=== PATIENT | male | born 1985 | race American Indian/Alaskan Native ===

== ENCOUNTER 2024-04-29 10:55 | Emergency (ER) | payer OTHER, SELFPAY ==
[2024-04-29 11:02] VITALS: BP 164/96
--- NOTE | 2024-04-29 12:11 | ED.GENMED ---
History of Present Illness
<Татьяна Juarez MD, Resident - Last Filed: 04/29/24 15:15>
General
Chief Complaint: BURN-MINOR
Source: patient and spouse
Exam Limitations: none
Time Seen by Provider: 04/29/24 11:34
Nursing documentation reviewed up to this point in time: agreed with
History of Present Illness
History of Present Illness:
38-year-old male with history of type 2 diabetes who presents to the ED with burn injuries. Last night at 9 PM, he was attempting to move related pot from cooking surface to a table when the lid fell and in an attempt to catch delayed, hot oil on
his right arm and right leg, with minor splashes on face and left leg. He washed affected areas with cold water and soap, took 500 mg Tylenol, applied 4% lidocaine to help with the burning pain. He was able to with a fan nearby for cooling. He
went to urgent care this morning and was told to come to the ED
Today he reports no pain, nausea vomiting, abdominal complaints, fever or chills. He is currently in no pain and has been able to eat and drink as needed. Pt's TDaP history is unknown.
Past History
<Татьяна Juarez MD, Resident - Last Filed: 04/29/24 15:15>
Past History
ED Past Medical History: NIDDM
ED Past Surgical History: None
Patient has exhibited threatening behavior?: No
Social History
Tobacco: Non-smoker
Alcohol: None
Drug: None
Personal:
Living: with family
Employment: Employed
Family History
Family History: Other (non-pertinent)
Review of Systems
<Татьяна Juarez MD, Resident - Last Filed: 04/29/24 15:15>
Review of Systems
Allergies reviewed?: Yes
Other source history: family
Constitutional: Denies fever
Cardiac: Denies chest pain
ABD/GI: Denies abdominal pain, nausea or vomiting
Skin: Reports other (burn, blisters. No pain)
Phy Exam
<Татьяна Juarez MD, Resident - Last Filed: 04/29/24 15:15>
General Physical Exam
General Presentation: well appearing and no apparent distress
General age: appears stated age
General Skin: warm and dry
General Habitus: normal
General Mental: alert
Cardiovascular Exam
Cardiovascular Exam: regular rate/rhythm, no edema and no murmur
Pulmonary Exam
Pulmonary Exam: lungs clear, no respiratory distress, no rales, no crackles, no rhonchi and no wheezing
Oxygen Status: room air
Gastrointestinal Exam
Gastrointestinal Exam: normal bowel sounds, non tender, soft and non distended
Skin Exam
Skin Exam: other (areas of non-tender hyperpigmented blistering and non-blistering lesions on Right arm and R leg, with minor splashes on face and left leg. about 6% TBSA. Upper thighs and torso spared. )
Course
<Татьяна Juarez MD, Resident - Last Filed: 04/29/24 15:15>
Orders/Labs/Results
Orders:
Orders
04/29/24 13:16
Silver Sulfadiazine [Silvadene] 1 applic .ROUTE .STK-MED ONE
04/29/24 13:41
Tetanus/Diphth/Acelpertussis [Adacel] 0.5 ml IM .ONCE ONE
04/30/24 08:00
Silver Sulfadiazine [Silvadene] 1 applic TOPICAL DAILY
Vital Signs
Initial and Last Documented VS:
Initial Vital Signs
Temp Pulse Resp BP Pulse Ox
98.6 F 84 16 164/96 98
04/29/24 11:02 04/29/24 11:02 04/29/24 11:02 04/29/24 11:02 04/29/24 11:02
Last Documented Vital Signs
Temp Pulse Resp BP Pulse Ox
98.6 F 84 16 164/96 98
04/29/24 11:02 04/29/24 11:02 04/29/24 11:02 04/29/24 11:02 04/29/24 11:02
<Herb Christianson DO - Last Filed: 05/01/24 15:32>
Orders/Labs/Results
Orders:
Orders
04/29/24 13:16
Silver Sulfadiazine [Silvadene] 1 applic .ROUTE .STK-MED ONE
04/29/24 13:41
Tetanus/Diphth/Acelpertussis [Adacel] 0.5 ml IM .ONCE ONE
04/30/24 08:00
Silver Sulfadiazine [Silvadene] 1 applic TOPICAL DAILY
Vital Signs
Initial and Last Documented VS:
Initial Vital Signs
Temp Pulse Resp BP Pulse Ox
98.6 F 84 16 164/96 98
04/29/24 11:02 04/29/24 11:02 04/29/24 11:02 04/29/24 11:02 04/29/24 11:02
Last Documented Vital Signs
Temp Pulse Resp BP Pulse Ox
98.6 F 84 16 164/96 98
04/29/24 11:02 04/29/24 11:02 04/29/24 11:02 04/29/24 11:02 04/29/24 11:02
<Татьяна Juarez MD, Resident - Last Filed: 04/29/24 15:15>
MDM/Problems Addressed
Differential Diagnosis Includes:
Superficial partial thickness burn over 6% TBSA.
MDM/Problems Addressed:
6% TBSA superficial partial thickness burn from hot cooking oil at home. Pain was controlled with supportive care including Tylenol, Lidocaine gel 4% and minor cooling measures. Pt is well-appearing. Transfer to burn center not indicated. Will
administer silvadene treatment and dressing. Instructions for care provided. Reasons to seek immediate help/return to ED explained to patient. F/U with wound care.
<Татьяна Juarez MD, Resident - Last Filed: 04/29/24 15:15>
*Critical Care Note
Total Time (30-74mins, 75-104mins- exclusive of procedures): Not Applicable
ED Attending Note
<Татьяна Juarez MD, Resident - Last Filed: 04/29/24 15:15>
-
Portions of this chart may have been created with voice recognition software.� Occasional wrong word or��sound alike� substitutions may have occurred due to the inherent limitations of voice recognition software.
<Herb Christianson, - Last Filed: 05/01/24 15:32>
ED Attending Note
Patient seen and examined by attending physician: Yes
I performed a history and physical exam of patient and discussed management with resident, I reviewed resident's note and agree with documented findings and plan of care.: Yes
ED Attending Note:
I have reviewed Dr. Juarez's note.
Pt suffered solomon when hot oil spilled last night. ? last tetanus
General: Awake, Alert, Oriented X3. No acute distress.
Vitals: unremarkable
Head: Atraumatic
Eyes: Pupils equal, EOMI
Throat: Airway intact, no exudates
Neuro: Nonfocal
Skin: Warm, dry. Right forearm noted to have second-degree solmoon along the dorsal aspect. These appear to be's superficial second-degree solomon. There is some blistering and sloughing in this area. Also some burn area on the forearm. Also has
similar type secondary solomon noted on the top of the foot as well as the lower extremity. None of the sloomon is circumferential. The burn appears deep.
Plan is Silvadene dressing, update tetanus.
Discharge Plan
Departure
Patient Disposition: Home (Routine Discharge)
Date of Disposition: 04/29/24
Time of Disposition: 13:18
Patient with high blood pressure during this ER visit?: Yes
Condition: Fair
Discharge Problem:
Partial thickness burn
Instructions: Minor Skin Solomon ED, BLOOD PRESSURE
Prescriptions:
New
silver sulfadiazine [Silvadene] 1 % cream
1 applic topical DAILY Qty: 25 0RF
Referrals:
Michelle Lawson MD [Family Provider] -
[facility] -
Interventions
Interventions:
*Risk Screen - Suicide Last Done: 04/29/24 11:02
*General Assessment Last Done: 04/29/24 11:02
*Neglect/Abuse Screening Last Done: 04/29/24 11:02
ED- Fall Risk Assessment Last Done: 04/29/24 14:06
*ED COVID-19 Vaccine History Last Done: 04/29/24 12:20
*Nursing Disposition Last Done: 04/29/24 14:06
ED-Skin Assessment Last Done: 04/29/24 12:20
Discharge Date and Time
Discharge Date/Time: 04/29/24 14:07
Print Language: SURINAMESE
[2024-04-29 12:20] VITALS: BMI 26.6
[2024-04-29] MEDS: SILVADENE 1 APPLIC TOPICAL ×2 (13:26→13:35)
[2024-04-29] MEDS: ADACEL 0.5 ML IM (13:54)
== END 2024-04-29 14:07 | disposition home or self-care (01) ==
LOC: EMR 10:55
PROVIDERS: EMERGENCY PHYSICIAN Emergency Medicine; FAMILY PHYSICIAN Internal Medicine
DX: T22.211A Burn of second degree of right forearm, initial encounter (principal); T24.001A Burn of unspecified degree of unspecified site of right lower limb, except ankle and foot, initial encounter; T24.002A Burn of unspecified degree of unspecified site of left lower limb, except ankle and foot, initial encounter; T20.00XA Burn of unspecified degree of head, face, and neck, unspecified site, initial encounter; T31.0 Burns involving less than 10% of body surface; X10.2XXA Contact with fats and cooking oils, initial encounter; Z23 Encounter for immunization; E11.9 Type 2 diabetes mellitus without complications
CPT/HCPCS: 99282; 90471; 90715

== ENCOUNTER → 2024-05-01 08:19 | Outpatient (REF) | payer OTHER, SELFPAY | LOC: WOUND 08:19 | PROVIDERS: ATTENDING PHYSICIAN Surgery | DX: T22.259A Burn of second degree of unspecified shoulder, initial encounter (principal); T22.211A Burn of second degree of right forearm, initial encounter; T22.231A Burn of second degree of right upper arm, initial encounter; T24.231A Burn of second degree of right lower leg, initial encounter; T25.031A Burn of unspecified degree of right toe(s) (nail), initial encounter; E11.9 Type 2 diabetes mellitus without complications; X10.2XXA Contact with fats and cooking oils, initial encounter | CPT/HCPCS: 99203 ==

== ENCOUNTER → 2024-05-05 13:56 | Outpatient (REF) | payer OTHER, SELFPAY | LOC: WOUND 13:56 | PROVIDERS: ATTENDING PHYSICIAN Surgery | DX: T22.259A Burn of second degree of unspecified shoulder, initial encounter (principal); T22.211A Burn of second degree of right forearm, initial encounter; T22.231A Burn of second degree of right upper arm, initial encounter; T24.231A Burn of second degree of right lower leg, initial encounter; T25.031A Burn of unspecified degree of right toe(s) (nail), initial encounter; E11.9 Type 2 diabetes mellitus without complications; X10.2XXA Contact with fats and cooking oils, initial encounter | CPT/HCPCS: 99213 ==

== ENCOUNTER → 2024-05-13 14:27 | Outpatient (REF) | payer OTHER, SELFPAY | LOC: WOUND 14:27 | PROVIDERS: ATTENDING PHYSICIAN Surgery | DX: T22.259A Burn of second degree of unspecified shoulder, initial encounter (principal); T22.211A Burn of second degree of right forearm, initial encounter; T22.231A Burn of second degree of right upper arm, initial encounter; T24.231A Burn of second degree of right lower leg, initial encounter; T25.031A Burn of unspecified degree of right toe(s) (nail), initial encounter; E11.9 Type 2 diabetes mellitus without complications; X10.2XXA Contact with fats and cooking oils, initial encounter | CPT/HCPCS: 99213 ==

== ENCOUNTER → 2024-05-22 10:07 | Outpatient (REF) | payer OTHER, SELFPAY | LOC: WOUND 10:07 | PROVIDERS: ATTENDING PHYSICIAN Surgery | DX: T22.259A Burn of second degree of unspecified shoulder, initial encounter (principal); T22.211A Burn of second degree of right forearm, initial encounter; T22.231A Burn of second degree of right upper arm, initial encounter; T24.231A Burn of second degree of right lower leg, initial encounter; T25.031A Burn of unspecified degree of right toe(s) (nail), initial encounter; X10.2XXA Contact with fats and cooking oils, initial encounter; E11.9 Type 2 diabetes mellitus without complications | CPT/HCPCS: 99213 ==